=== PATIENT | male | born 1960 | race African-American/Black ===

== ENCOUNTER 2018-10-23 21:43 | Emergency (ER) | payer OTHER ==
[~2018-10-23] VITALS: Ht 170.2 cm; Wt 65.8 kg
--- NOTE | 2018-10-23 21:44 | NUR ---
PT ALONDRA BLS. TAKEN TO BED 2
[2018-10-23 21:45] VITALS: BP 202/127
--- NOTE | 2018-10-23 21:50 | NUR ---
PT ALONDRA AND RECEIVED TO BED 2 VIA [place]. ASSUMED CARE OF PT AT THIS TIME. C/O INTERMITTENT LEFT LOWER BACK PAIN RADIATING DOWN THE LEFT LEG X 10 DAYS. PT SEEN AT [facility] AND DX W/ SCIATIC BACK PAIN, RX'D PAIN MEDS W/OUT RELIEF. PT IS AAOX4; PATIENT STATES PAIN OF 10/10; VSS; PATIENT POSITIONED FOR COMFORT; HOB ELEVATED; BEDRAILS UP X2; BED DOWN. ER MD MADE AWARE OF PT STATUS.
[2018-10-23] MEDS ORDERED: MORPHINE SULFATE 4 MG/ML SYR IVP ONE ×2 (22:00→22:30)
--- NOTE | 2018-10-23 22:06 | NUR ---
Dr. Gan evaluating patient at bedside.
[2018-10-23] MEDS ORDERED: CYCLOBENZAPRINE 10 MG TAB PO ONE (22:30)
[2018-10-23 23:25] VITALS: BP 178/94
--- NOTE | 2018-10-23 23:25 | NUR ---
Patient discharged with v/s stable. Written and verbal after care instructions given and explained. Patient alert, oriented and verbalized understanding of instructions. Ambulatory with steady gait. All questions addressed prior to discharge. ID band removed. Patient advised to follow up with PMD. Rx of PREDNISONE AND MOTRIN given. Patient educated on indication of medication including possible reaction and side effects. Opportunity to ask questions provided and answered.
== END 2018-10-23 23:25 | disposition home or self-care (01) ==
LOC: MED 21:43
DX: M54.32 Sciatica, left side (principal); G89.29 Other chronic pain; F17.200 Nicotine dependence, unspecified, uncomplicated; E11.9 Type 2 diabetes mellitus without complications; I10 Essential (primary) hypertension; Z88.8 Allergy status to other drugs, medicaments and biological substances; Z95.1 Presence of aortocoronary bypass graft
CPT/HCPCS: 96374; 96376; 99283; J2270; 96375

== ENCOUNTER 2018-11-04 02:45 | Inpatient (IN) | payer OTHER ==
[~2018-11-04] VITALS: Ht 170.2 cm; Wt 72.1 kg
[2018-11-04 02:53] VITALS: BP 181/122
--- NOTE | 2018-11-04 02:55 | NUR ---
PT BIBA FOR SOB. PT REPORTS SOB STARTING YESTERDAY AT NOON. PT O2 SAT AT 99% ON 4L VIA NASAL CANNULA, RR SYMMETRICAL, LABORED, BREATH SOUNDS CLEAR THROUGHOUT. PT DENIES PREVIOUS LUNG INJURY/DISEASE. PT DENIES COUGH, FEVER, N/V/D, OR CP AT THIS TIME. PT REPORTS SHARP PAIN IN HIS L HIP THAT RADIATES DOWN L LEG X2 MONTHS. PT STATES HE HAS BEEN NON-COMPLIANT WITH MEDICATIONS THE PAST WEEK. PT HAS FULL RANGE OF MOTION WITH LEG. ER MD TO SEE PT. SIDE RAILS UP X2, BED RAILS UP X2, HED OF BED ELEVATED. WILL CONTINUE TO MONITOR. MEDHX: HTN, CARDIAC ARREST, DM II
--- NOTE | 2018-11-04 02:58 | NUR ---
AOLNDRA BY FRANCESCA TO BED #2
[2018-11-04] MEDS ORDERED: DIAZEPAM 5 MG TAB PO ONE (03:00)
[2018-11-04] MEDS ORDERED: KETOROLAC 30 MG/ML VIAL IVP ONE (03:00)
--- NOTE | 2018-11-04 03:04 | NUR ---
EKG PERFORMED AT BEDSIDE. PT COVERED IN GOWN DURING PROCEDURE
[2018-11-04 03:25] LABS: BASOPHILS % (AUTO) 0.6 % (0.0-2.0); EOSINOPHILS # (AUTO) 0.1 K/uL (0-0.4); EOSINOPHILS % (AUTO) 2.1 % (0.0-4.0); HEMATOCRIT 49.4 % (36-52); HEMOGLOBIN 15.9 g/dL (12.0-18.0); LYMPHOCYTES # (AUTO) 2.3 K/uL (2.0-11.5); LYMPHOCYTES % (AUTO) 44.2 % (20.5-51.1); MEAN CORPUSCULAR HEMOGLOBIN 29 pg (27-31); MEAN CORPUSCULAR HGB CONC 32 g/dL (33-37); MEAN CORPUSCULAR VOLUME 90.5 fL (80-94); MONOCYTES # (AUTO) 0.6 K/uL (0.8-1.0); MONOCYTES % (AUTO) 10.8 % (1.7-9.3); NEUTROPHILS # (AUTO) 2.2 K/uL (1.8-7.7); NEUTROPHILS % (AUTO) 42.3 % (42.2-75.2); PLATELET COUNT (AUTO) 160 K/uL (140-450); RED BLOOD CELL COUNT(AUTO) 5.46 MIL/uL (4.20-6.10); WHITE BLOOD COUNT (AUTO) 5.1 K/uL (4.8-10.8)
[2018-11-04 03:33] LABS: ANION GAP 6.5 (8-16); CARBON DIOXIDE 30.5 mmol/L (21-32); CREATININE 1.4 mg/dL (0.7-1.3)
[2018-11-04 03:39] LABS: ALBUMIN 3.3 g/dL (3.4-5.0); TOTAL BILIRUBIN 0.2 mg/dL (0.0-1.0)
[2018-11-04 03:47] LABS: CREATINE KINASE MB 3.4 ng/mL (0-3.6)
--- NOTE | 2018-11-04 04:08 | NUR ---
PT RESTING IN BED, VSS. PT REPORTS HE IS NOT FEELING SOB AT THIS TIME, RR SYMMETRICAL AND NON-LABORED. PT REPORTS PAIN AT 6/10 IN L HIP. WILL CONTINUE TO MONITOR.
[2018-11-04] MEDS ORDERED: HEPARIN PER PHARMACY MC STA (04:54)
[2018-11-04] MEDS ORDERED: hePARIN / DEXT 5% PREMIX 250 ML IV STA (04:54)
[2018-11-04] MEDS ORDERED: ASPIRIN 325 MG TAB PO ONE (04:55)
--- NOTE | 2018-11-04 05:18 | NUR ---
SECOND EKG PERFORMED AT BEDSIDE. PT COVERED IN GOWN
[2018-11-04 05:24] LABS: PROTHROMBIN TIME 10.2 secs (10.8-13.4)
--- NOTE | 2018-11-04 06:15 | NUR ---
PT ON TELE HOLD, [employer] STATED THEY ARE BACKED UP UNTIL AFTER 07:00.
[2018-11-04] MEDS ORDERED: ZOLPIDEM 5 MG TAB PO PRN (06:35)
[2018-11-04] MEDS ORDERED: ASPIRIN 81 MG TAB.CHEW PO ONE (06:35)
[2018-11-04] MEDS ORDERED: ACETAMINOPHEN 325 MG TAB PO PRN (06:35)
[2018-11-04] MEDS ORDERED: MORPHINE SULFATE 4 MG/ML SYR IVP ONE (06:35)
[2018-11-04] MEDS ORDERED: LORazepam 1 MG TAB PO PRN (06:35)
[2018-11-04] MEDS ORDERED: NITROGLYCERIN 0.4 MG TAB SL PRN (06:35)
--- NOTE | 2018-11-04 07:00 | NUR ---
Admited to tele via gurney with VSS. Will go to room 106B. Belongings list completed. Report to Norma RIVAS.
--- NOTE | 2018-11-04 07:15 | NUR ---
PATIENT TRANSFERRED FROM ER. PATIENT IS AWAKE, ALERT, RESPIRATION EVEN AND UNLABOR ON O2 2L VIA NC. DENIES PAIN AND SOB. IV INTACT AND PATENT. SKIN IS WARM, DRY, AND INTACT. ORIENTED TO ROOM, STAFF, AND CALL LIGHT. PLAN OF CARE WAS DISCUSS. BED IS IN LOW POSITION. CALL LIGHT WITHIN REACH.
--- NOTE | 2018-11-04 07:48 | NUR ---
DR CAICEDO INSPECTOR FINAL ASSEMBLY ELECTRICAL FOR DR DIETRICH PAGED REGARDING INCREASED BP, AND TO CLARIFY HEPARIN ORDER.
--- NOTE | 2018-11-04 08:15 | NUR ---
DR CAICEDO INCOMING FREIGHT CLERK FOR DR DIETRICH PAGED REGARDING INSULIN ORDER FOR BS 348, HEPARIN SQ AND IV DRIP, AND INCREASED BP 174/117.
[2018-11-04] MEDS ORDERED: DEXTROSE 50% 50 ML SYR IVP PRN (08:25)
[2018-11-04] MEDS ORDERED: ENALAPRILAT 2.5 MG/2 ML VIAL IVP PRN (08:30)
[2018-11-04] MEDS: INSULIN LISPRO SLIDING SCALE 100 UNITS/ML VIAL SUBQ PRN ×3 (08:35→20:58)
--- NOTE | 2018-11-04 08:45 | NUR ---
DR. HINTON AT BEDSIDE. NOTIFIED INCREASED BP AND HEPARIN DUPLICATE ORDER CLARIFIED.
[2018-11-04] MEDS: DOCUSATE SODIUM 100 MG GELCAP PO SCH (08:58)
[2018-11-04] MEDS ORDERED: METOPROLOL 25 MG TAB PO SCH (09:00)
--- NOTE | 2018-11-04 09:03 | NUR ---
SCHEDULE MEDS WERE GIVEN PER ORDER. PATIENT TOLERATED WELL. NO COMPLAIN OF PAIN. WILL CONTINUE TO MONITOR.
[2018-11-04] MEDS ORDERED: HEPARIN PER PHARMACY MC PRN (09:40)
[2018-11-04] MEDS ORDERED: hePARIN / DEXT 5% PREMIX 250 ML IV SCH (10:00)
[2018-11-04] MEDS ORDERED: ALBUTEROL 0.083% 2.5 MG/3 ML NEBU INH PRN (10:40)
[2018-11-04] MEDS ORDERED: FUROSEMIDE 20 MG/2 ML VIAL IVP SCH ×3 (11:00→17:00)
--- NOTE | 2018-11-04 11:20 | NUR ---
NOT JUST COMPLETED NEB TREATMENT, PT NOW WITH INCREASED WORK OF BREATHING RR 33, HR 88 PT UNABLE TO SIT STILL , PT DENIES CHEST PAIN, C/O LEFT LEG PAIN, ONLY COMPLAINS OF DIFFICULTY BREATHING, O2 SAT 88 ON 2L NC, INCREASED TO 4L, NORMAL SINUS RHYTHM ON THE MONITOR PER DRAWER MAKER, LASIX 20MG AND MORPHINE GIVEN PER ORDERED, WILL CONTINUE TO MONITOR, DR Anastacio FOX PAGEMima.
--- NOTE | 2018-11-04 11:25 | NUR ---
post hhn rx pt became anxious complaining unable to get breath spo2 .88 placed pt on 100% pt started to relax nrm rn aware willwea n down off nrm will continue to monitor
[2018-11-04] MEDS: BLOOD GLUCOSE MONITORING 1 DEV DEV FS SCH ×3 (11:30→20:53)
[2018-11-04] MEDS: MORPHINE SULFATE 2 MG/ML SYR IVP PRN ×2 (11:31→18:05)
--- NOTE | 2018-11-04 11:45 | NUR ---
PT CONTINUES TO BE IN DISTRESS, DIAPHORETIC, SOB, RR 30-35, PLACED ON NON REBREATHER BY RT, DR HINTON CALLED, PT CONDITION REPORTED, ORDER FOR ADDITIONAL 20MG LASIX AND CTA CHEST RECIVED.
[2018-11-04 12:00] VITALS: BP 166/116
--- NOTE | 2018-11-04 12:19 | NUR ---
PATIENT HAS BEEN SCREENED AND CATEGORIZED MODERATE NUTRITION RISK. PATIENT WILL BE SEEN WITHIN 3-5 DAYS OF ADMISSION. 11/06/18HAILY GARCIA RD
--- NOTE | 2018-11-04 12:55 | NUR ---
PT NOW RESTING WITH EYES CLOSED, RESP MUCH IMPROVED, RR 20 ON NON REBREATHER, SAT 99%, HR 85, PT SIGNED CONSENT FOR CTA, MANAGER FINANCIAL SYSTEMS MADE AWARE
--- NOTE | 2018-11-04 13:22 | NUR ---
PT BACK FROM CT
[2018-11-04] MEDS: KETOROLAC 30 MG/ML VIAL IVP PRN ×2 (13:39→22:09)
--- NOTE | 2018-11-04 13:52 | NUR ---
PTT 50.2 PER VERGIE, NO CHANGE IN HEPARIN DOSE PER PROTOCOL, HEPARIN CONTINUES AT 870 UNITS/HR, PT HAS NO S/S OF BLEEDING AT THIS TIME.
[2018-11-04 16:00] VITALS: BP 149/111
--- NOTE | 2018-11-04 16:00 | NUR ---
PATIENT IS AWAKE, ALERT, RESPIRATION EVEN AND UNLABOR ON ROOM AIR. FAMILY IS AT BEDSIDE. NO DISTRESS NOTED Addendum: 11/04/18 at 1848 by Norma Leon RN NOTE MADE ABOVE FOR PATIENT INCORRECT: PATIENT IS AWAKE, ALERT, RESPIRATION EVEN AND UNLABOR ON 4L OF O2 VIA NC. NO SHORTNESS OF BREATH NOTED AT THIS TIME. PATIENT IS WATCHING TV COMFORTABLY. CALL LIGHT WITHIN REACH.
--- NOTE | 2018-11-04 16:29 | NUR ---
PT ON 4L NC SPO2 100%. NC NOW TITRATED TO 2L SPO2 96%. PT IS IN BED RESTING WITH NO SOB NO RESPIRATORY DISTRESS NOTED.
[2018-11-04] MEDS: FUROSEMIDE 20 MG/2 ML VIAL IVP SCH (16:37)
[2018-11-04] MEDS ORDERED: INFLUENZA VIRUS VACCINE QUAD 0.5 ML SYR IMVAC PRN (17:45)
[2018-11-04] MEDS ORDERED: PNEUMOCOCCAL VACCINE 23 MCG/0.5 ML VIAL IMVAC PRN ×2 (17:45→18:10)
[2018-11-04] MEDS ORDERED: cloNIDine 0.1 MG TAB PO SCH (18:30)
[2018-11-04] MEDS ORDERED: amLODIPine 5 MG TAB PO SCH (19:00)
--- NOTE | 2018-11-04 19:00 | NUR ---
DR. FOX AT BEDSIDE. PATIENT IS ON ROOM AIR NOW. SATING 96% NO DISTRESS NOTED.
--- NOTE | 2018-11-04 19:20 | NUR ---
HEPARIN DRIP STOPPED PER DR Anastacio FOX.
--- NOTE | 2018-11-04 19:25 | NUR ---
ENDORSED PATIENT TO WELL REACTIVATOR OPERATOR NURSE FOR CONTINUITY OF CARE. PATIENT IS STABLE AT THIS TIME.
--- NOTE | 2018-11-04 19:26 | NUR ---
RECEIVED REPORT FROM DAY SHIFT NURSE HIMANSHU-RN AT BEDSIDE. PT RESTING IN BED, AOX4, ON ROOM AIR WITH IV ON LEFT FA #[id number]-SL. DISCUSSED PLAN OF CARE AND PT VERBALIZED UNDERSTANDING. NO S/S OF RESPIRATORY DISTRESS OR DISCOMFORT NOTED AT THIS TIME. BED IN LOWEST POSITION, BED BREAKS ON, BOTH SIDE RAILS ON. BEDSIDE TABLE AND CALL LIGHT ARE WITHIN REACH. WILL CONTINUE TO MONITOR.
[2018-11-04 20:00] VITALS: BP 136/87
--- NOTE | 2018-11-04 20:00 | NUR ---
VITAL SIGNS TAKEN AND TOLERATED WELL. BLOOD GLUCOSE 325- WILL ADMINISTER INSULIN COVERAGE. NO S/S OF RESPIRATORY DISTRESS OR DISCOMFORT NOTED AT THIS TIME. WILL CONTINUE TO MONITOR.
[2018-11-04] MEDS: CARVEDILOL 6.25 MG TAB PO SCH (20:52)
--- NOTE | 2018-11-04 22:09 | NUR ---
PT C/O OF LEG PAIN 04/19 AND MEDICATED WITH TORADOL. PT STATED MORPHINE WORKS BETTER. WILL CALL DR TO CLARIFY ORDER. NO S/S OF RESPIRATORY DISTRESS OR DISCOMFORT NOTED AT THIS TIME. WILL CONTINUE TO MONITOR.
[2018-11-04] MEDS: MORPHINE SULFATE 4 MG/ML SYR IVP PRN (22:51)
--- NOTE | 2018-11-04 22:51 | NUR ---
SPOKE WITH DR. CRAIN COVERING FOR DR. HINTON AND ORDERED MORPHINE 2MG. MEDICATION GIVEN AND PT TOLERATED WELL AFTER PT STATED TORADOL NOT WORKING AND STILL IN PAIN. NO S/S OF RESPIRATORY DISTRESS OR DISCOMFORT NOTED AT THIS TIME. WILL CONTINUE TO MONITOR.
[2018-11-05] VITALS (7 sets, daily range): BP systolic 106–133; BP diastolic 72–81
--- NOTE | 2018-11-05 | NUR ---
VITAL SIGNS TAKEN AND TOLERATED WELL. NO S/S OF RESPIRATORY DISTRESS OR DISCOMFORT NOTED AT THIS TIME. WILL CONTINUE TO MONITOR.
--- NOTE | 2018-11-05 02:00 | NUR ---
PT CONTINUES TO SLEEP IN BED. NO S/S OF RESPIRATORY DISTRESS OR DISCOMFORT NOTED AT THIS TIME. WILL CONTINUE TO MONITOR.
[2018-11-05] MEDS: MORPHINE SULFATE 4 MG/ML SYR IVP PRN ×5 (03:46→20:40)
--- NOTE | 2018-11-05 03:46 | NUR ---
PT C/O LEG PAIN AND MEDICATED WITH MORPHINE 2MG. VITAL SIGNS TAKEN AND TOLERATED WELL. NO S/S OF RESPIRATORY DISTRESS OR DISCOMFORT NOTED AT THIS TIME. WILL CONTINUE TO MONITOR.
[2018-11-05] MEDS: glipiZIDE 5 MG TAB PO SCH (05:41)
--- NOTE | 2018-11-05 05:41 | NUR ---
PT STATED HE WAS TOLD BY THE DR NOT TO TAKE GLUCOTROL FOR 2 WEEKS AFTER "CAT SCAN WITH INJECTED BLUE DYE THAT BURNED" ON 11/04/2018. PT REFUSED MED.
[2018-11-05] MEDS: BLOOD GLUCOSE MONITORING 1 DEV DEV FS SCH ×4 (06:41→20:35)
[2018-11-05] MEDS: INSULIN LISPRO SLIDING SCALE 100 UNITS/ML VIAL SUBQ PRN ×4 (06:52→20:34)
--- NOTE | 2018-11-05 06:53 | NUR ---
BLOOD GLUCOSE 179- 2 UNITS HUMALOG GIVEN AND TOLERATED WELL. NO S/S OF RESPIRATORY DISTRESS OR DISCOMFORT NOTED AT THIS TIME. WILL CONTINUE TO MONITOR.
[2018-11-05 07:11] LABS: BASOPHILS % (AUTO) 0.4 % (0.0-2.0); EOSINOPHILS # (AUTO) 0.2 K/uL (0-0.4); EOSINOPHILS % (AUTO) 1.8 % (0.0-4.0); HEMATOCRIT 48.2 % (36-52); HEMOGLOBIN 15.8 g/dL (12.0-18.0); LYMPHOCYTES # (AUTO) 2.7 K/uL (2.0-11.5); LYMPHOCYTES % (AUTO) 29.1 % (20.5-51.1); MEAN CORPUSCULAR HEMOGLOBIN 29 pg (27-31); MEAN CORPUSCULAR HGB CONC 33 g/dL (33-37); MEAN CORPUSCULAR VOLUME 89.6 fL (80-94); MONOCYTES % (AUTO) 10.2 % (1.7-9.3); NEUTROPHILS # (AUTO) 5.5 K/uL (1.8-7.7); NEUTROPHILS % (AUTO) 58.5 % (42.2-75.2); PLATELET COUNT (AUTO) 154 K/uL (140-450); RED BLOOD CELL COUNT(AUTO) 5.38 MIL/uL (4.20-6.10); WHITE BLOOD COUNT (AUTO) 9.3 K/uL (4.8-10.8)
--- NOTE | 2018-11-05 07:14 | NUR ---
ENDORSED PT CARE TO DAY SHIFT NURSE SHERRY-ROB FOR CONTINUITY OF CARE.
--- NOTE | 2018-11-05 07:18 | NUR ---
RECEIVED BEDSIDE REPORT FROM CLINICAL EDUCATION MANAGER RN. PT AOX4, SLEEPING IN BED, AROUSABLE BY VOICE. NO C/O PAIN OR DISCOMFORT AT THIS TIME. NO S/S DISTRESS. RESPIRATIONS EVEN AND UNLABORED, NO SOB. SKIN INTACT. PER CLINICAL EDUCATION MANAGER, PT IS CONTINENT AND AMBULATORY. PT ASKING ABOUT BREAKFAST, INFORMED PT THAT BREAKFAST TRAYS ARE BEING PASSED NOW. IV SITE PATENT AND ASYMPTOMATIC, ON SL. ALL OTHER SAFETY PRECAUTIONS IN PLACE, WILL CONTINUE TO MONITOR.
[2018-11-05 07:56] LABS: ALBUMIN 3.1 g/dL (3.4-5.0); ANION GAP 7.6 (8-16); CARBON DIOXIDE 33.3 mmol/L (21-32); CREATININE 1.5 mg/dL (0.7-1.3); POTASSIUM 4.9 mmol/L (3.5-5.1); TOTAL BILIRUBIN 0.5 mg/dL (0.0-1.0)
[2018-11-05] MEDS: DOCUSATE SODIUM 100 MG GELCAP PO SCH (08:11)
[2018-11-05] MEDS: LISINOPRIL 10 MG TAB PO SCH (08:11)
[2018-11-05] MEDS: CARVEDILOL 6.25 MG TAB PO SCH ×2 (08:12→20:40)
[2018-11-05] MEDS: amLODIPine 5 MG TAB PO SCH (08:13)
[2018-11-05] MEDS: FUROSEMIDE 20 MG/2 ML VIAL IVP SCH ×2 (08:19→16:47)
--- NOTE | 2018-11-05 10:03 | NUR ---
APPLIED ICE BACK TO PT'S LOWER BACK AND SECURED WITH ABD BINDER PER PT REQUEST.
--- NOTE | 2018-11-05 14:52 | NUR ---
PT PROVIDED LIST OF HOME MEDICATIONS. NO FREQUENCY PROVIDED. ASKED PT TO OBTAIN MEDICATION FREQUENCY FROM SON.
--- NOTE | 2018-11-05 16:02 | NUR ---
PT SLEEPING IN BED, RESPIRATIONS EVEN AND UNLABORED. NO S/S DISTRESS. WILL CONTINUE TO MONITOR.
--- NOTE | 2018-11-05 19:24 | NUR ---
ENDORSED POC TO RIVET HAMMER MACHINE OPERATOR RN. PT IN STABLE CONDITION.
--- NOTE | 2018-11-05 19:25 | NUR ---
RECEIVED FROM AM RN IN BED AWAKE AND ALERT. ABLE TO VERBALIZE NEEDS WELL. USES CALL LIGHT FOR HELP. TELEMETRY MONITORING. DX. OF NSTEMI. SKIN INTACT. NO SOB. 02 SAT WNL IN ROOM AIR.
--- NOTE | 2018-11-05 20:46 | NUR ---
PT. MEDICATED WITH MORPHINE IVP REQUESTED FOR PAIN. ABLE TO VERBALIZE NEEDS WELL. USES CALL LIGHT FOR HELP .
--- NOTE | 2018-11-05 22:21 | NUR ---
PT. AT THIS TIME AWAKE AND ALERT AND PROVIDED WITH DIABETIC SNACK. TALKING WELL WITH NEW ROOM MATE. GOOD AFFECT. PT. TALKING ABOUT BASKETBALL TEAMS WITH ROOM MATE. GOOD AFFECT. NO RESTLESSNESS. CALL LIGHT WITH IN REACH.
--- NOTE | 2018-11-05 23:10 | NUR ---
WAKES UP EASILY WHEN TOUCHED. NO COMPLAINTS DONE AT THIS TIME. VITAL SIGNS TAKEN WITHOUT ANY COMPLAINTS. SLEPT BACK.
[2018-11-06] VITALS (7 sets, daily range): BP systolic 97–142; BP diastolic 69–88
[2018-11-06] MEDS: MORPHINE SULFATE 4 MG/ML SYR IVP PRN ×5 (00:34→22:02)
--- NOTE | 2018-11-06 00:36 | NUR ---
pt. awake and came out from restroom located inside room. independent. requested for pain reliever. medicated with morphine as requested. pt. noted to be angry, demanding and with high tone voice talking to me rt probably from generalized pain when he went to restroom. pacified. understood and went back to sleep immediately post morphine ivp.
--- NOTE | 2018-11-06 02:06 | NUR ---
AWAKE AND WENT TO RESTROOM. REQUESTED FOR SLEEPING PILL. STATED HE CAN NOT SLEEP. A/O X 4. ROM X 4. CLEAR SPEECH. MEDICATED REQUESTED WITH AMBIEN 5 MG. P.O.
--- NOTE | 2018-11-06 04:50 | NUR ---
SLEEPING WELL AT THIS TIME POST AMBIEN P.O. ADMINISTERED. WOKE UP EASILY WHEN TOUCHED FOR VITAL SIGNS. WENT BACK TO SLEEP.
[2018-11-06] MEDS: glipiZIDE 5 MG TAB PO SCH (06:00)
[2018-11-06] MEDS: BLOOD GLUCOSE MONITORING 1 DEV DEV FS SCH ×4 (06:00→21:57)
[2018-11-06] MEDS: INSULIN LISPRO SLIDING SCALE 100 UNITS/ML VIAL SUBQ PRN ×4 (06:07→22:01)
--- NOTE | 2018-11-06 06:42 | NUR ---
AWAKE AND MEDICATED WITH PAIN RELIEVER MORPHINE 3 MG REQUESTED RT LEG PAIN/SCIATICA. VERBALIZES WELL.
[2018-11-06 07:12] LABS: BASOPHILS % (AUTO) 0.3 % (0.0-2.0); EOSINOPHILS # (AUTO) 0.1 K/uL (0-0.4); EOSINOPHILS % (AUTO) 1.8 % (0.0-4.0); HEMATOCRIT 52.8 % (36-52); HEMOGLOBIN 17.4 g/dL (12.0-18.0); LYMPHOCYTES # (AUTO) 1.9 K/uL (2.0-11.5); LYMPHOCYTES % (AUTO) 28.1 % (20.5-51.1); MEAN CORPUSCULAR HEMOGLOBIN 30 pg (27-31); MEAN CORPUSCULAR HGB CONC 33 g/dL (33-37); MEAN CORPUSCULAR VOLUME 89.7 fL (80-94); MONOCYTES # (AUTO) 0.7 K/uL (0.8-1.0); MONOCYTES % (AUTO) 9.8 % (1.7-9.3); PLATELET COUNT (AUTO) 157 K/uL (140-450); RED BLOOD CELL COUNT(AUTO) 5.89 MIL/uL (4.20-6.10); RED CELL DISTRIBUTION WIDTH 13.9 % (11.6-13.7); WHITE BLOOD COUNT (AUTO) 6.7 K/uL (4.8-10.8)
--- NOTE | 2018-11-06 07:15 | NUR ---
RECEIVED PT REPORT FROM DISCOTHEQUE DANCER NURSE. PT IS ALERT AND AWAKE, NO S/S OF ACUTE DISTRESS OR SOB. PT IS ON ROOM AIR, SKIN IS INTACT. IV SITE NOTED ON THE LFA, 20 G, SALINE LOCKED. CALL LIGHT IS WITHIN REACH. WILL CONT TO MONITOR.
[2018-11-06 08:04] LABS: ANION GAP 8.8 (8-16); CARBON DIOXIDE 33.9 mmol/L (21-32); CREATININE 1.5 mg/dL (0.7-1.3); POTASSIUM 4.7 mmol/L (3.5-5.1)
[2018-11-06] MEDS: FUROSEMIDE 20 MG/2 ML VIAL IVP SCH ×2 (08:33→17:00)
[2018-11-06] MEDS: amLODIPine 5 MG TAB PO SCH (08:34)
[2018-11-06] MEDS: DOCUSATE SODIUM 100 MG GELCAP PO SCH (08:34)
[2018-11-06] MEDS: LISINOPRIL 10 MG TAB PO SCH (08:35)
[2018-11-06] MEDS: CARVEDILOL 6.25 MG TAB PO SCH ×2 (08:35→20:06)
--- NOTE | 2018-11-06 09:30 | NUR ---
PT SEEN BY DR HINTON
--- NOTE | 2018-11-06 10:28 | NUR ---
PT C/O LOWER BACK PAIN 03/20. PT REQUESTED ICE PACKS FOR HIS LOWER BACK. WILL ADMINISTER PAIN MEDICINE
--- NOTE | 2018-11-06 10:42 | NUR ---
PT OFF THE UNIT FOR LUMBAR X-RAY
[2018-11-06] MEDS: HYDROcodone/APAP 5/325 MG 1 TAB TAB PO PRN ×2 (11:56→20:05)
[2018-11-06] MEDS: CYCLOBENZAPRINE 10 MG TAB PO SCH ×2 (13:45→17:47)
--- NOTE | 2018-11-06 19:20 | NUR ---
ENDORSED PT TO LEAD SOFTWARE DEVELOPMENT ENGINEER IN STABLE CONDITION
--- NOTE | 2018-11-06 19:31 | NUR ---
RECEIVED FROM AM RN IN BED AWAKE AND ALERT. SEEN BY MD HINTON TODAY. ABLE TO VERBALIZE NEEDS WELL. NO SOB. TELEMETRY MONITORING. PT. COMPLAINING OF CHRONIC SCIATICA LEG PAIN. MEDICATED REQUESTED. CALL LIGHT WITH IN REACH. INDEPENDENT WITH ADLS. ROM X 4.
--- NOTE | 2018-11-06 20:08 | NUR ---
PT. COREG MEDICATION NOT ADMINISTERED RT PT. REFUSED. STATED"I WOULD TAKE NORCO INSTEAD." PROS AND CONS EXPLAINED. A/O X 4. ROM X 4. CLEAR SPEECH.
[2018-11-06] MEDS ORDERED: AMITRIPTYLINE 10 MG TAB PO SCH (21:00)
--- NOTE | 2018-11-06 23:45 | NUR ---
PT. SLEEPING WELL. NO RESTLESSNESS NOTED.
[2018-11-07] MEDS: HYDROcodone/APAP 5/325 MG 1 TAB TAB PO PRN ×3 (00:02→08:54)
--- NOTE | 2018-11-07 00:05 | NUR ---
PT. AWAKE AND REQUESTED FOR NORCO. REMINDED THAT I AM GIVING IT TO HIM AND TO PLEASE NOT FORGET THAT I GAVE HIM NORCO AT THIS TIME. "I DIDN'T SAY IT" IN ANGRY TONE. NOTED PT. WITH BOUTS OF FORGETFULNESS . " I AM SO SORRY, YOU KNOW ME" JUST REMINDED HIM AGAIN NOT TO FORGET. "OK"
--- NOTE | 2018-11-07 00:20 | NUR ---
PROVIDED WITH SNACK REQUESTED. TELEMETRY MONITORING. CALL LIGHT WITH IN REACH.
--- NOTE | 2018-11-07 01:27 | NUR ---
CHECKED ON PT. AND NOTED SLEEPING.
[2018-11-07] MEDS: MORPHINE SULFATE 4 MG/ML SYR IVP PRN ×3 (02:29→10:11)
--- NOTE | 2018-11-07 02:31 | NUR ---
PT. AWAKE AT THIS TIME AND ASKING FOR MORPHINE 3MG IVP. MEDICATED REQUESTED RT " MY SCIATIC NERVE PAIN IS BACK"
--- NOTE | 2018-11-07 02:37 | NUR ---
PT. PROVIDED WITH WARM BLANKET RT COMPLAINED OF SCIATICA NERVE PAIN. KEPT COMFORTABLE. GOOD AFFECT AT THIS TIE. TELEMETRY MONITORING.
[2018-11-07 04:49] VITALS: BP 129/81
--- NOTE | 2018-11-07 04:56 | NUR ---
MY SCIATICA NERVE PAIN HURTS. PER PT. REQUESTED FOR [place]. MEDICATED REQUESTED AND ORDERED.
[2018-11-07] MEDS: glipiZIDE 5 MG TAB PO SCH (06:09)
[2018-11-07] MEDS: BLOOD GLUCOSE MONITORING 1 DEV DEV FS SCH ×2 (06:09→11:46)
[2018-11-07] MEDS: INSULIN LISPRO SLIDING SCALE 100 UNITS/ML VIAL SUBQ PRN ×2 (06:11→11:46)
--- NOTE | 2018-11-07 06:44 | NUR ---
PT. SLEEPING AT THIS TIME. NO SOB. GOOD AFFECT. A/O X 4.
[2018-11-07 06:50] LABS: ANION GAP 8.5 (8-16); CREATININE 1.8 mg/dL (0.7-1.3); POTASSIUM 5.5 mmol/L (3.5-5.1)
--- NOTE | 2018-11-07 07:10 | NUR ---
RECEIVED PT REPORT FROM WOOD BOAT BUILDER SUPERVISOR NURSE. PT IS SLEEPING, EASILY AROUSED, AOX4, NO S/S OF ACUTE DISTRESS ON ROOM AIR, SKIN IS INTACT. IV SITE NOTED ON THE L FA, 20 G, ASYMPTOMATIC, PATENT AND INTACT, SL. NO EDEMA NOTED. NO C/O PAIN AT THIS TIME. PAIN 3/10 TOLERABLE. RECEIVED MORPHINE AROUND 6AM. CALL LIGHT IS WITHIN REACH. WILL CONT TO MONITOR.
[2018-11-07 08:00] VITALS: BP 116/79
[2018-11-07 08:21] LABS: BASOPHILS % (AUTO) 0.2 % (0.0-2.0); EOSINOPHILS # (AUTO) 0.1 K/uL (0-0.4); EOSINOPHILS % (AUTO) 2.4 % (0.0-4.0); HEMATOCRIT 52.9 % (36-52); HEMOGLOBIN 17.7 g/dL (12.0-18.0); LYMPHOCYTES # (AUTO) 1.8 K/uL (2.0-11.5); MEAN CORPUSCULAR HEMOGLOBIN 30 pg (27-31); MEAN CORPUSCULAR HGB CONC 33 g/dL (33-37); MEAN CORPUSCULAR VOLUME 89.5 fL (80-94); MONOCYTES % (AUTO) 17.5 % (1.7-9.3); NEUTROPHILS # (AUTO) 2.7 K/uL (1.8-7.7); NEUTROPHILS % (AUTO) 47.9 % (42.2-75.2); PLATELET COUNT (AUTO) 155 K/uL (140-450); RED BLOOD CELL COUNT(AUTO) 5.91 MIL/uL (4.20-6.10); RED CELL DISTRIBUTION WIDTH 13.7 % (11.6-13.7); WHITE BLOOD COUNT (AUTO) 5.6 K/uL (4.8-10.8)
--- NOTE | 2018-11-07 08:54 | NUR ---
PT C/O PAIN TO THE LEFT HIP, TRAVELING DOWN THE THIGH. DENIES ANY CHEST DISCOMFORT. PRN PAIN MED GIVEN.
[2018-11-07] MEDS: DOCUSATE SODIUM 100 MG GELCAP PO SCH (08:57)
[2018-11-07] MEDS: CYCLOBENZAPRINE 10 MG TAB PO SCH (08:57)
[2018-11-07] MEDS: LISINOPRIL 10 MG TAB PO SCH (09:00)
[2018-11-07] MEDS ORDERED: busPIRone 5 MG TAB PO SCH (09:00)
[2018-11-07] MEDS ORDERED: ESCITALOPRAM 20 MG TAB PO SCH (09:00)
[2018-11-07] MEDS: FUROSEMIDE 20 MG/2 ML VIAL IVP SCH (09:00)
[2018-11-07] MEDS ORDERED: CLOPIDOGREL 75 MG TAB PO SCH (09:00)
[2018-11-07] MEDS ORDERED: ASPIRIN 81 MG TAB.CHEW PO SCH (09:00)
[2018-11-07] MEDS: CARVEDILOL 6.25 MG TAB PO SCH (09:00)
[2018-11-07] MEDS: amLODIPine 5 MG TAB PO SCH (09:03)
[2018-11-07] MEDS ORDERED: ELA10 PO (09:49)
[2018-11-07] MEDS ORDERED: ASPI81CT95 PO (09:49)
[2018-11-07] MEDS ORDERED: ACET-9525 PO (09:49)
[2018-11-07] MEDS ORDERED: CARV6.252 PO (09:49)
[2018-11-07] MEDS ORDERED: LISI10TA11 PO (09:49)
[2018-11-07] MEDS ORDERED: GLIP5TAB13 PO (09:49)
[2018-11-07] MEDS ORDERED: CLOP75TA26 PO (09:49)
[2018-11-07] MEDS ORDERED: ESCI20TA47 PO (09:49)
[2018-11-07] MEDS ORDERED: FURO40TA9 PO (09:49)
[2018-11-07] MEDS ORDERED: SODIUM POLYSTYRENE 15 GM/60 ML UDBTL PO SCH (10:00)
--- NOTE | 2018-11-07 11:46 | NUR ---
6 UNITS INSULIN GIVEN FOR BLOOD SUGAR 267, PT STATED HE WILL EAT LUNCH WHEN HE ARRIVES HOME WHICH IS 15MIN AWAY.
--- NOTE | 2018-11-07 11:50 | NUR ---
PT DISCHARGED PER MD ORDER. DISCHARGE INSTRUCTION AND MEDICATION TEACHING PROVIDED, PT VERBALIZED UNDERSTANDING. RX GIVEN. PT DRESSED UP HIMSELF. TELE REMOVED. WHEELED PT TO LOBBY. PT'S SON PICKED UP PT.
[2018-11-07] MEDS ORDERED: FUROSEMIDE 40 MG TAB PO SCH (17:00)
== END 2018-11-07 11:55 | disposition home or self-care (01) | DRG 194 ==
LOC: MED 02:45 → MTU 06:12
PROVIDERS: ADMIT Internal Medicine; ATTEND Internal Medicine
PROC: 3E02340 Introduction of Influenza Vaccine into Muscle, Percutaneous Approach (ICD-10-PCS; principal; 2018-11-04)
PROC: 3E0234Z Introduction of Serum, Toxoid and Vaccine into Muscle, Percutaneous Approach (ICD-10-PCS; 2018-11-04)
DX: I11.0 Hypertensive heart disease with heart failure (principal); I21.A1 Myocardial infarction type 2; J96.01 Acute respiratory failure with hypoxia; I50.23 Acute on chronic systolic (congestive) heart failure; M54.30 Sciatica, unspecified side; F15.10 Other stimulant abuse, uncomplicated; E11.9 Type 2 diabetes mellitus without complications; I25.10 Atherosclerotic heart disease of native coronary artery without angina pectoris; E78.5 Hyperlipidemia, unspecified; I34.0 Nonrheumatic mitral (valve) insufficiency; I27.21 Secondary pulmonary arterial hypertension; Z87.891 Personal history of nicotine dependence; Z23 Encounter for immunization; Z88.8 Allergy status to other drugs, medicaments and biological substances; Z95.1 Presence of aortocoronary bypass graft; I25.2 Old myocardial infarction; Z79.84 Long term (current) use of oral hypoglycemic drugs
CPT/HCPCS: 36415; 36600; 71045; 71275; 72100; 80048; 80053; 82550; 82553; 82803; 82948; 83036; 83735; 83880; 84484; 85025; 85379; 85610; 85730; 87081; 90658; 90732; 93005; 94640; 96365; 96375; 96376; 99285; J1644; J1815; J1885; J1940; J2270; J3490; J7613; Q0092; Q9967

== ENCOUNTER 2018-11-12 20:23 | Emergency (ER) | payer OTHER ==
[~2018-11-12] VITALS: Ht 170.2 cm; Wt 72.6 kg
[~2018-11-12 20:23] MED LIST: ACET-9525 PO; ASPI81CT95 PO; CARV6.252 PO; CLOP75TA26 PO; ELA10 PO; ESCI20TA47 PO; FURO40TA9 PO; GLIP5TAB13 PO; LISI10TA11 PO
[2018-11-12 20:30] VITALS: BP 126/78
--- NOTE | 2018-11-12 20:30 | NUR ---
PATIENT BIB BLS TO ER BED 11.
[2018-11-12] MEDS ORDERED: NACL 0.9% 500 ML IV ONE (21:00)
[2018-11-12 21:23] LABS: BASOPHILS % (AUTO) 0.3 % (0.0-2.0); EOSINOPHILS # (AUTO) 0.1 K/uL (0-0.4); EOSINOPHILS % (AUTO) 2.8 % (0.0-4.0); HEMATOCRIT 45.2 % (36-52); HEMOGLOBIN 14.5 g/dL (12.0-18.0); LYMPHOCYTES % (AUTO) 46.2 % (20.5-51.1); MEAN CORPUSCULAR HEMOGLOBIN 29 pg (27-31); MEAN CORPUSCULAR HGB CONC 32 g/dL (33-37); MONOCYTES # (AUTO) 0.5 K/uL (0.8-1.0); MONOCYTES % (AUTO) 10.3 % (1.7-9.3); NEUTROPHILS # (AUTO) 1.8 K/uL (1.8-7.7); NEUTROPHILS % (AUTO) 40.4 % (42.2-75.2); PLATELET COUNT (AUTO) 160 K/uL (140-450); RED BLOOD CELL COUNT(AUTO) 5.02 MIL/uL (4.20-6.10); RED CELL DISTRIBUTION WIDTH 13.9 % (11.6-13.7); WHITE BLOOD COUNT (AUTO) 4.4 K/uL (4.8-10.8)
[2018-11-12 21:38] LABS: ACETONE, SERUM NEGATIVE (NEGATIVE)
[2018-11-12 21:43] LABS: ANION GAP 10.1 (8-16); ASPARTATE AMINOTRANSFERASE 40 U/L (15-37); CARBON DIOXIDE 27.6 mmol/L (21-32); CHLORIDE 104 mmol/L (98-107); CREATININE 1.7 mg/dL (0.7-1.3); GFR ARICAN-AMERICAN 53 mL/min (>90); POTASSIUM 4.7 mmol/L (3.5-5.1); SODIUM SERUM 137 mmol/L (136-145); TOTAL BILIRUBIN 0.2 mg/dL (0.0-1.0); UREA NITROGEN, BLOOD 15 mg/dL (7-18)
[2018-11-12 21:46] LABS: GLUCOSE 489 mg/dL (74-106)
[2018-11-12] MEDS ORDERED: LORazepam 2 MG/ML VIAL IVP ONE (21:50)
[2018-11-12] MEDS ORDERED: MORPHINE SULFATE 4 MG/ML SYR IVP ONE (21:50)
[2018-11-12] MEDS ORDERED: INSULIN REGULAR, HUMAN 100 UNIT/ML VIAL IVP ONE (21:50)
[2018-11-12 22:48] VITALS: BP 127/77
--- NOTE | 2018-11-12 23:01 | NUR ---
PT GIVEN ONE ON ONE INSTRUCTION ON PROPER USE OF CRUTCHES. CRUTCHES FITTED TO PT HEIGHT WITH TWO INCH SPACE BETWEEN ARMPIT AND START OF CRUTCHES, HANDLES FITTED TO PT WRISTS WHEN AT REST. INSTRUCTION GIVEN ON SITTING TO STANDING, WALKING WITH DEMONSTRATION FOR APPROXIMATELY 20 FEET, AND GOING UP AND DOWN STAIRS. PT STATED HE FELT COMFORTABLE WITH USE OF CRUTCHES.
== END 2018-11-12 22:45 | disposition home or self-care (01) ==
LOC: MED 20:23
DX: M10.072 Idiopathic gout, left ankle and foot (principal); M54.5 Low back pain; E11.9 Type 2 diabetes mellitus without complications; I10 Essential (primary) hypertension; Z79.82 Long term (current) use of aspirin; Z79.899 Other long term (current) drug therapy; Z79.84 Long term (current) use of oral hypoglycemic drugs; Z88.8 Allergy status to other drugs, medicaments and biological substances
CPT/HCPCS: 36415; 80053; 82009; 85025; 96374; 96375; 99283; J1815; J2060; J2270; J7030

== ENCOUNTER 2018-11-15 09:00 | Inpatient (IN) | payer OTHER ==
[~2018-11-15] VITALS: Ht 170.2 cm; Wt 72.6 kg
[2018-11-15 09:06] VITALS: BP 147/90
--- NOTE | 2018-11-15 09:06 | NUR ---
TO BED # 6 AMBULATORY, REPORT GIVEN TO FADUMO RIVAS
[2018-11-15] MEDS ORDERED: ALBUTEROL 0.083% 2.5 MG/3 ML NEBU INH ONE (09:25)
[2018-11-15] MEDS ORDERED: IPRATROPIUM 0.02% 0.5 MG/2.5 ML NEBU INH ONE (09:25)
[2018-11-15 10:02] LABS: BASOPHILS % (AUTO) 0.8 % (0.0-2.0); EOSINOPHILS # (AUTO) 0.1 K/uL (0-0.4); EOSINOPHILS % (AUTO) 2.6 % (0.0-4.0); HEMATOCRIT 45.2 % (36-52); HEMOGLOBIN 14.6 g/dL (12.0-18.0); LYMPHOCYTES # (AUTO) 1.8 K/uL (2.0-11.5); LYMPHOCYTES % (AUTO) 42.7 % (20.5-51.1); MEAN CORPUSCULAR HEMOGLOBIN 29 pg (27-31); MEAN CORPUSCULAR HGB CONC 32 g/dL (33-37); MEAN CORPUSCULAR VOLUME 89.9 fL (80-94); MONOCYTES # (AUTO) 0.4 K/uL (0.8-1.0); MONOCYTES % (AUTO) 9.7 % (1.7-9.3); NEUTROPHILS # (AUTO) 1.9 K/uL (1.8-7.7); NEUTROPHILS % (AUTO) 44.2 % (42.2-75.2); PLATELET COUNT (AUTO) 173 K/uL (140-450); RED BLOOD CELL COUNT(AUTO) 5.02 MIL/uL (4.20-6.10); RED CELL DISTRIBUTION WIDTH 13.5 % (11.6-13.7); WHITE BLOOD COUNT (AUTO) 4.2 K/uL (4.8-10.8)
--- NOTE | 2018-11-15 10:03 | NUR ---
cxr at bedside
[2018-11-15 10:09] LABS: MAGNESIUM 1.7 mg/dL (1.8-2.4)
[2018-11-15 10:19] LABS: CREATININE 1.6 mg/dL (0.7-1.3); POTASSIUM 4.8 mmol/L (3.5-5.1); TOTAL BILIRUBIN 0.3 mg/dL (0.0-1.0)
[2018-11-15 10:20] LABS: ANION GAP 5.4 (8-16); CARBON DIOXIDE 32.4 mmol/L (21-32)
[2018-11-15 10:29] LABS: PROTHROMBIN TIME 10.4 secs (10.8-13.4)
[2018-11-15] MEDS ORDERED: ONDANSETRON 4 MG/2 ML VIAL IVP PRN (12:35)
[2018-11-15] MEDS ORDERED: ACETAMINOPHEN 325 MG TAB PO PRN (12:35)
[2018-11-15] MEDS: ALBUTEROL 0.083% 2.5 MG/3 ML NEBU INH SCH ×2 (13:00→19:43)
--- NOTE | 2018-11-15 13:16 | NUR ---
PT STILL IN ER NOT IN ROOM
[2018-11-15 13:18] LABS: APPEARANCE,URINE CLEAR (CLEAR); BILIRUBIN,URINE NEGATIVE (NEGATIVE); BLOOD, URINE NEGATIVE (NEGATIVE); COLOR,URINE YELLOW (YELLOW); LEUKOCYTE ESTERASE ,URINE NEGATIVE (NEGATIVE); NITRITE, URINE NEGATIVE (NEGATIVE); PH,URINE 5.5 (5.0-9.0); UGLUCOSE 1+ (NEGATIVE)
[2018-11-15 13:32] LABS: RBC,URINE 0-5 (RARE) /HPF (0-5); WBC,URINE 0-5 (RARE) /HPF (0-5)
[2018-11-15 13:47] VITALS: BP 139/96
--- NOTE | 2018-11-15 13:47 | NUR ---
RECEIVED PATIENT VIA GURNEY FROM ER. AOX4. DENIES PAIN AT ADMISSION. SKIN INTACT, DRY AND CLEAN. IV ON L POSTERIOR ARM 20G, INTACT AND PATENT, NOT INFUSING. IV SITE CLEAN AND DRY. ABLE TO AMBULATE WITH STEADY GAIT. ORIENTED PATIENT TO THE ROOM, HOW TO USE THE CALL LIGHT FOR ANY ASSISTANCE. DISCUSS PLAN OF CARE WITH PATIENT, PATIENT VERBALIZED UNDERSTANDING. BED IN LOW POSITION, CALL LIGHT WITHIN REACH.
[2018-11-15 13:52] LABS: BARBITURATE, URINE NEGATIVE ng/ml (NEG <=200); BENZODIAZEPINE, URINE NEGATIVE ng/mL (NEG <=200); CANNABINOID, URINE POSITIVE ng/mL (NEG <=50); COCAINE, URINE NEGATIVE ng/mL (NEG <=300); OPIATE, URINE NEGATIVE ng/mL (NEG <=2000); PHENCYCLIDINE SCREEN,URINE NEGATIVE ng/mL (NEG <=25)
--- NOTE | 2018-11-15 13:52 | NUR ---
Pt report given to SARAH RIVASSENIOR DATABASE PROGRAMMER ROOM 119-B. Transfer of care at this time.
[2018-11-15] MEDS: MORPHINE SULFATE 2 MG/ML SYR IVP PRN ×3 (14:42→22:42)
[2018-11-15] MEDS ORDERED: NACL 0.9% 500 ML IV SCH (17:10)
--- NOTE | 2018-11-15 17:10 | NUR ---
CALLED AND SPOKE TO DR CRAFT ON REGARDS OF PT C/O L LOWER LEG PAIN, AND PER PT. MORPHINE IS INEFFECTIVE. HE IS HAVING NERVE PAIN 05/20. PER DR CRAFT, ORDERED U/S FOR HIS L LEG AND 0.9 NS AT 10 ML/HR FOR HIS PERIPHERAL IV. ORDERS HAS PLACED.
[2018-11-15] MEDS: INSULIN LISPRO SLIDING SCALE 100 UNITS/ML VIAL SUBQ PRN ×2 (17:21→21:18)
[2018-11-15] MEDS: FUROSEMIDE 40 MG/4 ML VIAL IVP SCH (17:27)
--- NOTE | 2018-11-15 17:47 | NUR ---
ADMINISTERED MEDS PER MD ORDER. PATIENT TOLERATED WELL. RADIOLOGISTS ARE AT BEDSIDE.
[2018-11-15 18:32] LABS: CREATINE KINASE MB 3.6 ng/mL (0-3.6)
--- NOTE | 2018-11-15 18:35 | NUR ---
PATIENT DID NOT LIKE HIS DINNER AND REQUESTED FOR A TURKEY SANDWICH. CALLED [facility] AND REQUESTED FOR A TURKEY SANDWICH.
--- NOTE | 2018-11-15 19:15 | NUR ---
BEDSIDE REPORT GIVEN TO CLINICAL REHABILITATION COORDINATOR NURSE FOR CONTINUITY OF CARE. PATIENT IS IN A STABLE CONDITION. INFORMED CLINICAL REHABILITATION COORDINATOR NURSE THAT LAST PRN PAIN MED WAS ADMINISTERED AT 1906, AND PAIN REASSESSMENT IS DUE IN 30 MINS.
--- NOTE | 2018-11-15 19:16 | NUR ---
REPORT RECEIVED FROM AM NURSE AT BEDSIDE. PT IN STABLE CONDITION. AAOX4. INTRODUCED SELF TO PT. NO COMPLAINTS OF PAIN. PT WAS ALREADY MEDICATED@190. NO SOB. AFEBRILE. IV SITE L FA 20G RUNNING NS@10ML/HR TKO PATENT AND INTACT. SKIN WARM, DRY, AND INTACT WITH NO OPEN WOUNDS. BED LOCKED IN LOW POSITION. CALL W[place]EN WITHIN REACH. SAFETY PRECAUTIONS IN PLACE.
[2018-11-15] MEDS ORDERED: DEXTROSE 50% 50 ML SYR IVP PRN (19:30)
[2018-11-15] MEDS: IPRATROPIUM 0.02% 0.5 MG/2.5 ML NEBU INH SCH (19:43)
[2018-11-15 20:00] VITALS: BP 128/86
[2018-11-15] MEDS: CARVEDILOL 6.25 MG TAB PO SCH (20:58)
--- NOTE | 2018-11-15 20:58 | NUR ---
COREG AND ELAVIL GIVEN PO. PT TOLERATED WELL. HEPARIN GIVEN SUBQ. BS 214. 4 UNITS OF HUMALOG GIVEN.
[2018-11-15] MEDS ORDERED: AMITRIPTYLINE 10 MG TAB PO SCH (21:00)
[2018-11-15] MEDS: BLOOD GLUCOSE MONITORING 1 DEV DEV FS SCH (21:09)
--- NOTE | 2018-11-15 22:42 | NUR ---
MORPHINE GIVEN IVP FOR 6/10 PAIN. PT TOLERATED WELL.
[2018-11-16] VITALS: BP 154/105
--- NOTE | 2018-11-16 00:30 | NUR ---
PT SLEEPING COMFORTABLY IN BED BUT AROUSABLE. NO S/S OF DISTRESS NOTED. WILL CONTINUE TO MONITOR.
[2018-11-16] MEDS: ALBUTEROL 0.083% 2.5 MG/3 ML NEBU INH SCH ×3 (01:19→13:46)
[2018-11-16] MEDS: IPRATROPIUM 0.02% 0.5 MG/2.5 ML NEBU INH SCH ×3 (01:19→13:46)
--- NOTE | 2018-11-16 02:30 | NUR ---
PT SLEEPING COMFORTABLY IN BED. NO S/S OF DISTRESS NOTED. RESPIRATIONS EVEN, UNLABORED, AND WNL. WILL CONTINUE TO MONITOR.
[2018-11-16 02:57] LABS: CREATINE KINASE MB 2.8 ng/mL (0-3.6)
[2018-11-16] MEDS: MORPHINE SULFATE 2 MG/ML SYR IVP PRN ×4 (03:26→16:51)
--- NOTE | 2018-11-16 03:26 | NUR ---
MORPHINE GIVEN FOR 6/10 PAIN. PT TOLERATED WELL.
[2018-11-16 04:00] VITALS: BP 125/95
[2018-11-16] MEDS: INSULIN LISPRO SLIDING SCALE 100 UNITS/ML VIAL SUBQ PRN ×2 (06:07→12:37)
[2018-11-16] MEDS: BLOOD GLUCOSE MONITORING 1 DEV DEV FS SCH ×3 (06:08→16:30)
--- NOTE | 2018-11-16 06:08 | NUR ---
BS 281. 6 UNITS OF INSULIN GIVEN.
--- NOTE | 2018-11-16 07:25 | NUR ---
REPORT GIVEN TO AM NURSE AT BEDSIDE. PT IN STABLE CONDITION.
[2018-11-16 07:26] LABS: BASOPHILS % (AUTO) 0.8 % (0.0-2.0); EOSINOPHILS # (AUTO) 0.2 K/uL (0-0.4); EOSINOPHILS % (AUTO) 3.2 % (0.0-4.0); HEMOGLOBIN 16.5 g/dL (12.0-18.0); LYMPHOCYTES # (AUTO) 1.5 K/uL (2.0-11.5); LYMPHOCYTES % (AUTO) 31.9 % (20.5-51.1); MEAN CORPUSCULAR HEMOGLOBIN 30 pg (27-31); MEAN CORPUSCULAR HGB CONC 33 g/dL (33-37); MEAN CORPUSCULAR VOLUME 89.5 fL (80-94); MONOCYTES # (AUTO) 0.6 K/uL (0.8-1.0); NEUTROPHILS # (AUTO) 2.4 K/uL (1.8-7.7); NEUTROPHILS % (AUTO) 51.1 % (42.2-75.2); PLATELET COUNT (AUTO) 188 K/uL (140-450); RED BLOOD CELL COUNT(AUTO) 5.59 MIL/uL (4.20-6.10); RED CELL DISTRIBUTION WIDTH 13.9 % (11.6-13.7); WHITE BLOOD COUNT (AUTO) 4.8 K/uL (4.8-10.8)
--- NOTE | 2018-11-16 07:30 | NUR ---
RECEIVED BEDSIDE REPORT FROM TELEHEALTH NURSE RN. PT IN STABLE CONDITION. AAOX4. SLEEPING IN BED, AROUSALBE BY VOICE. NO C/O PAIN OR DISCOMFORT AT THIS TIME. AMBULATORY W/O ASSIST. SKIN INTACT. PT C/O SOB, ON BREATHING TX. NO S/S RESPIRATORY DISTRESS. RESPIRATIONS EVEN AND UNLABORED. LUNGS CTA. HEART RHYTHM REGULAR. IV SITE PATENT AND ASYMPTOMATIC, ON TKO 10 ML/HR. ALL SAFETY PRECAUTIONS IN PLACE, WILL CONTINUE TO MONITOR. Addendum: 11/16/18 at 1125 by Bobbi Ruiz Meng RN PATIENT DENIES CP, LIGHTHEADEDNESS, ANXIETY, N/V. VITALS STABLE.
[2018-11-16 08:00] VITALS: BP 149/93
--- NOTE | 2018-11-16 08:07 | NUR ---
PATIENT HAS BEEN SCREENED AND CATEGORIZED MODERATE NUTRITION RISK. PATIENT WILL BE SEEN WITHIN 3-5 DAYS OF ADMISSION. 11/18/18HAILY GARCIA RD
[2018-11-16 08:17] LABS: ALBUMIN 3.2 g/dL (3.4-5.0); ANION GAP 6.6 (8-16); CARBON DIOXIDE 32.1 mmol/L (21-32); CREATININE 1.5 mg/dL (0.7-1.3); TOTAL BILIRUBIN 0.4 mg/dL (0.0-1.0)
[2018-11-16 08:37] LABS: POTASSIUM 5.7 mmol/L (3.5-5.1)
[2018-11-16] MEDS: FUROSEMIDE 40 MG/4 ML VIAL IVP SCH (08:42)
[2018-11-16] MEDS: CARVEDILOL 6.25 MG TAB PO SCH (08:43)
--- NOTE | 2018-11-16 08:53 | NUR ---
ADMINISTERED SCHEDULED MEDICATIONS. PT RESTING COMFORTABLY IN BED.
[2018-11-16] MEDS ORDERED: NON-FORMULARY ITEM (Aspirin 81 MG) PO SCH (09:00)
[2018-11-16] MEDS ORDERED: ESCITALOPRAM 20 MG TAB PO SCH (09:00)
[2018-11-16] MEDS ORDERED: CLOPIDOGREL 75 MG TAB PO SCH (09:00)
[2018-11-16] MEDS ORDERED: ASPIRIN 81 MG TAB.CHEW PO SCH (09:00)
[2018-11-16] MEDS ORDERED: SODIUM POLYSTYRENE 15 GM/60 ML UDBTL PO SCH (10:00)
[2018-11-16] MEDS ORDERED: CALCIUM GLUCONATE 10% 1,000 MG in NACL 0.9% 100 ML IV SCH (11:00)
[2018-11-16 12:00] VITALS: BP 145/98
--- NOTE | 2018-11-16 12:41 | NUR ---
PT REPORTS ONE BM SINCE THE [place] ADMINISTATION.
--- NOTE | 2018-11-16 14:44 | NUR ---
LEFT MESSAGE FOR LAURA FERNANDEZ REGARDING NO F/U APPOINTMENT FOR PCP. ALSO ASKED IF CM CAN MAKE APPOINTMENT W/ AIR CONDITIONING UNIT ASSEMBLER DR. FOX PER PT REQUEST.
--- NOTE | 2018-11-16 15:01 | NUR ---
SPOKE WITH LAURA VILLEGAS REGARDING APPOINTMENT FOR PCP AND DR. FOX. NELLY TO CALL ME BACK WHEN APPOINTMENTS ARE MADE.
--- NOTE | 2018-11-16 15:19 | NUR ---
PER LAURA VILLEGAS, SHE WILL CALL PATIENT TOMORROW IN REGARDS TO PCP AND HOROLOGIST APPOINTMENTS.
--- NOTE | 2018-11-16 15:33 | NUR ---
PATIENT CALLING [facility] NOW FOR RIDE FROM HOSPITAL. PT TOOK OFF TELE, REFUSED TO PUT TELE BACK ON, WANTS TO GET DRESSED NOW.
--- NOTE | 2018-11-16 15:48 | NUR ---
PT STATES HE IS IN TOO MUCH PAIN, HE CAN'T SIT UP IN THE WHEELCHAIR. SAYS HE CAN'T LEAVE NOW. WILL PAGE/NOTIFY DR. CRAFT.
[2018-11-16 16:00] VITALS: BP 132/92
--- NOTE | 2018-11-16 16:51 | NUR ---
ADMINISTERED MORPHINE IVP. PT TO BE DISCHARGED AFTER 30 MINUTES. FUEL ASSEMBLER AWARE.
--- NOTE | 2018-11-16 17:30 | NUR ---
ALL D/C PAPERWORK GIVEN TO PATIENT. MED RECONCILIATION TEACHING GIVEN. PT IS AWARE THAT CM TO CALL HIM TOMORROW FOR OUTPATIENT APPOINTMENTS. IV SITE REMOVED WITH MINIMAL BLOOD LOSS AND LUMEN INTACT. ID BANDS REMOVED. ALL PERSONAL BELONGINGS WITH PATIENT. DISCHARGED FROM UNIT VIA WHEELCHAIR.
[2018-11-16] MEDS ORDERED: CARVEDILOL 12.5 MG TAB PO SCH (21:00)
--- NOTE | 2018-11-17 11:37 | NUR ---
Called Dr. Angel Peña PCP to make a follow up appointment but no answer. Left a message twice. Called Dr. Anastacio De Dios to make a follow appointment and pt needs to be seen by PCP first. Called pt and informed him that he has to see PCP Dr. Peña and I tried calling the office of Dr. Peña to make appointment for him but the office hasn't called me back. Pt will call Dr. Peña's office to make his own appointment. Informed pt that he has to see PCP Dr. Peña so he can be referred to see Dr. Anastacio De Dios.
--- NOTE | 2018-11-17 12:01 | NUR ---
Pt called back and he has appointment with Dr. Marleny Peña on 11/29/18 at 0815 .
== END 2018-11-16 17:30 | disposition home or self-care (01) | DRG 190 ==
LOC: MED 09:00 → MTU 12:35
PROVIDERS: ADMIT Hospitalist; ATTEND Hospitalist
DX: I21.4 Non-ST elevation (NSTEMI) myocardial infarction (principal); E11.22 Type 2 diabetes mellitus with diabetic chronic kidney disease; E11.51 Type 2 diabetes mellitus with diabetic peripheral angiopathy without gangrene; I42.7 Cardiomyopathy due to drug and external agent; E44.1 Mild protein-calorie malnutrition; I13.0 Hypertensive heart and chronic kidney disease with heart failure and stage 1 through stage 4 chronic kidney disease, or unspecified chronic kidney disease; I50.22 Chronic systolic (congestive) heart failure; N18.9 Chronic kidney disease, unspecified; J44.9 Chronic obstructive pulmonary disease, unspecified; Z95.1 Presence of aortocoronary bypass graft; F15.10 Other stimulant abuse, uncomplicated; I25.10 Atherosclerotic heart disease of native coronary artery without angina pectoris; E78.5 Hyperlipidemia, unspecified; Z79.82 Long term (current) use of aspirin; Z79.02 Long term (current) use of antithrombotics/antiplatelets; Z79.84 Long term (current) use of oral hypoglycemic drugs; Z79.899 Other long term (current) drug therapy; Z87.891 Personal history of nicotine dependence; Z86.74 Personal history of sudden cardiac arrest; Z71.51 Drug abuse counseling and surveillance of drug abuser; Z68.25 Body mass index [BMI] 25.0-25.9, adult
CPT/HCPCS: 36415; 36600; 71045; 80053; 80305; 81001; 82550; 82553; 82803; 82948; 83605; 83735; 83880; 84132; 84484; 85025; 85379; 85610; 85730; 87040; 87081; 87086; 93005; 93926; 93971; 94640; 99285; G0482; J0610; J1644; J1815; J1940; J2270; J7613; J7644; Q0092